=== PATIENT | male | born 1985 | race American Indian/Alaskan Native ===

== ENCOUNTER 2022-07-19 10:25 | Outpatient (CLI) | payer OTHER ==
--- NOTE | 2022-07-19 11:52 | XRay Report ---
CERVICAL SPINE 3 VIEWS INDICATION: BACK PAIN, MUSCLE SPASM. COMPARISON: None. IMPRESSION: Normal alignment. 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 The remaining dis c spaces and facet joints are unremarkable. No acute osseous or soft tissue abnormality. LUMBOSACRAL SPINE 3 VIEWS INDICATION: BACK PAIN, MUSCLE SPASM. COMPARISON: None. IMPRESSION: Normal alignment. No significant discogenic DJD or facet arthropathy. No acute osseous or soft tissue abnormality. Signer Name: Dakota Kay Jr, MD Signed: 07/19/2022 11:48 AM Workstation Name: [id number]
== END 2022-07-19 10:26 | disposition home or self-care (01) ==
LOC: XRAY 10:25
PROVIDERS: ATTEND Internal Medicine
DX: M54.50 Low back pain, unspecified (principal); M62.9 Disorder of muscle, unspecified
CPT/HCPCS: 72040; 72100